=== PATIENT | female | born 1930 | race Caucasian/White ===

== ENCOUNTER 2018-09-25 13:31 | Emergency (ER) | payer MEDICARE ==
[~2018-09-25] VITALS: Ht 160 cm; Wt 53.5 kg
[2018-09-25 13:39] VITALS: Ht 160 cm; Wt 53.5 kg
[2018-09-25 14:57] LABS: BASOPHIL % 0.6 % (0-2); PLATELET COUNT 429 x10^3mcL (130-400); RED CELL DISTRIBUTION WIDTH 16.1 % (11.5-14.5)
[2018-09-25 14:58] LABS: CALCIUM 8.5 mg/dL (8.5-10.1); CARBON DIOXIDE 26.7 mmol/L (21-32); CHLORIDE SERUM 103 mmol/L (98-107); CREATININE SERUM 1.2 mg/dL (0.6-1.0); GLUCOSE SERUM 96 mg/dL (74-106); POTASSIUM SERUM 4.4 mmol/L (3.5-5.1); SODIUM SERUM 139 mmol/L (136-145)
[2018-09-25 15:02] LABS: ALBUMIN 3.5 g/dL (3.4-5.0); ALKALINE PHOSPHATASE 100 U/L (46-116); ALT/SGPT 17 U/L (14-59); AST/SGOT 12 U/L (15-37); BILIRUBIN TOTAL 0.6 mg/dL (0.20-1.00); TOTAL PROTEIN, SERUM 7.1 g/dL (6.4-8.2)
[2018-09-25 16:35] VITALS: BP 110/57
== END 2018-09-25 16:35 | disposition home or self-care (01) ==
LOC: ED 13:31
PROVIDERS: Emergency Medicine
DX: R06.03 Acute respiratory distress (principal); J44.1 Chronic obstructive pulmonary disease with (acute) exacerbation; E78.5 Hyperlipidemia, unspecified; N18.9 Chronic kidney disease, unspecified; Z98.890 Other specified postprocedural states; Z88.2 Allergy status to sulfonamides; Z88.5 Allergy status to narcotic agent; Z88.1 Allergy status to other antibiotic agents; Z88.8 Allergy status to other drugs, medicaments and biological substances
CPT/HCPCS: 36415; 83880; J7512; J7620; Q0092

== ENCOUNTER 2019-06-17 10:55 | Inpatient (IN) | payer MEDICARE ==
[~2019-06-17] VITALS: Ht 160 cm; Wt 49.7 kg
[2019-06-17 11:02] VITALS: Ht 160 cm; Wt 49.7 kg
--- NOTE | 2019-06-17 11:02 | NUR ---
PT BIBA C/O SOB AND "CYST" TO MID RIGHT CHEST. PT ARRIVED ON CPAP AND RT MARY KAY AT BEDSIDE TO TRANSFER PT ONTO BIPAP. PT TRANSFERRED BY MEDICS AND ED STAFF ONTO [facility] AND PLACED ON FULL CM. PER MEDICS PT HAS HX OF DEMENTIA, "HER MENTATION IS BASELINE PER THE NURSES AT [facility]", PT IS AAO TO SELF, REORIENTED TO DATE AND LOCATION, PT REPEATEDLY ASKS STAFF TO REMOVE BIPAP MASK, PT INFORMED BIPAP IS NECESSARY, PT VERBALIZED UNDERSTANDING. PT NOTED TO HAVE LABORED BREATHING WITH FRANCISCO SUPRACLAVICULAR RETRACTIONS NOTED, WHEEZING TO ALL ZAMUDIO NOTED UPON AUSCULTATION. PER MEDICS PT SKIN WAS PALE UPON ARRIVAL, STS "AFTER WE PUT HER ON THE CPAP SHE BECAME MORE PINK". AWAITING MSE.
--- NOTE | 2019-06-17 11:07 | NUR ---
DR SALES MADE AWARE OF PT'S CHEST WOUND, STS NO WOUND CULTURES NEEDED.
--- NOTE | 2019-06-17 11:07 | NUR ---
DR SALES AT BEDSIDE FOR MSE.
--- NOTE | 2019-06-17 11:08 | NUR ---
DR SALES AT BEDSIDE FOR MSE.
--- NOTE | 2019-06-17 11:27 | NUR ---
EKG IN PROGRESS.
--- NOTE | 2019-06-17 11:29 | NUR ---
PER ODALIS HUNTER, SPOKE WITH "THE NURSE THAT NORMALLY TAKES CARE OF THE PT, SHE SAID THE LAST BREATHING TX SHE GOT WAS LAST NIGHT, BUT IT DIDN'T ACTUALLY HAVE MEDICATION IN IT. SHE ALSO SAID THE LAST SHOWER PT HAD, WHEN THEY DO THEIR SKIN CHECKS, WAS ON 06/13/19 AND THEY DIDN'T SEE THE CYST ON HER CHEST".
[2019-06-17 11:37] LABS: CALCIUM 8.5 mg/dL (8.5-10.1); CARBON DIOXIDE 27.9 mmol/L (21-32); CHLORIDE SERUM 104 mmol/L (98-107); CREATININE SERUM 0.8 mg/dL (0.6-1.0); GLUCOSE SERUM 100 mg/dL (74-106); POTASSIUM SERUM 4.3 mmol/L (3.5-5.1); SODIUM SERUM 141 mmol/L (136-145)
--- NOTE | 2019-06-17 11:39 | NUR ---
PT'S SON AT BEDSIDE.
[2019-06-17 11:48] LABS: ALBUMIN 3.1 g/dL (3.4-5.0); ALKALINE PHOSPHATASE 138 U/L (46-116); ALT/SGPT 20 U/L (14-59); AST/SGOT 13 U/L (15-37); BILIRUBIN TOTAL 0.62 mg/dL (0.20-1.00); C REACTIVE PROTEIN 5.1 mg/dL (<=0.9)
[2019-06-17 11:51] LABS: CK-MB 1.8 ng/mL (0-3.6)
[2019-06-17 12:03] LABS: T3 TOTAL 0.72 ng/mL
--- NOTE | 2019-06-17 12:04 | NUR ---
URINE DIP RESULTS REPORTED TO DR SALES.
[2019-06-17 12:06] LABS: UA SPECIFIC GRAVITY 1.025 (1.005-1.035); microscopic required? YES; urine erythrocyte 3+ (NEGATIVE)
[2019-06-17 12:12] LABS: BASOPHIL % 0.4 % (0-2)
[2019-06-17 12:13] LABS: PLATELET COUNT 403 x10^3mcL (130-400); RED CELL DISTRIBUTION WIDTH 16.3 % (11.5-14.5)
[2019-06-17 12:21] LABS: FREE T4 0.94 ng/dL (0.76-1.46); T4(THYROXINE) 5.8 ug/dL (4.7-13.3)
--- NOTE | 2019-06-17 12:37 | NUR ---
PT MEDICATED PER EMAR.
--- NOTE | 2019-06-17 12:38 | NUR ---
PT STS HER BIPAP MASK "IS BOTHERING ME" X3 ATTEMPTS MADE BY ME TO ADJUST PT'S BIPAP MASK, RT MARY KAY AT BEDSIDE FOR ASSISTANCE. PT'S SON AT BEDSIDE. PT ON FULL CM, VSS, PT BREATHING IS BECOMING MORE REGULAR, CONTINUES TO WHEEZE IN ALL ZAMUDIO UPON AUSCULTATION, CALL LIGHT WITHIN REACH. PT IN POSITION OF COMFORT.
[2019-06-17] MEDS ORDERED: DULERA1 AR2 INH (13:12)
[2019-06-17] MEDS ORDERED: ZESTRIL5 MG PO (13:14)
[2019-06-17] MEDS ORDERED: PROAIR HFA8.5 GM IH (13:14)
[2019-06-17] MEDS ORDERED: ARICEPT5 MG PO (13:14)
[2019-06-17] MEDS ORDERED: LIPITOR40 MG PO (13:14)
[2019-06-17] MEDS ORDERED: ASPIR LOW81 MG PO (13:15)
--- NOTE | 2019-06-17 13:24 | NUR ---
REPORT GIVEN TO SUE BEAL TO ASSUME CARE OF PT.
--- NOTE | 2019-06-17 13:48 | NUR ---
PT TRANSPORTED TO TELE AT THIS TIME. PT IS AWAKE AND ALERT, REMAINS ON BIPAP. PT TRANSPORTED BY RN MARCELLA, EMT SIRISHA, AND RT MARY KAY. NAD NOTED UPON LEAVING ED.
[2019-06-17 13:52] LABS: MAGNESIUM 2.2 mg/dL (1.8-2.4)
[2019-06-17 13:53] LABS: CHOLESTEROL/HDL RATIO 2.5
[2019-06-17 13:55] LABS: ERYTHROCYTE SED RATE 68 mm/hr (0-30)
--- NOTE | 2019-06-17 14:01 | NUR ---
RECEIVED PT FROM ED VIA [facility] [employer], CAME IN DUE TO SOB AND WOUND ON THE CHEST THAT WAS NOTICE BY THE PATIENT'S SON TODAY. PT IS AAOX2 (PERSON, PLACE AND BIRTHDATE), FORGETFUL. ABLE TO FOLLOW COMMANDS. SPEECH IS CLEAR. SOB NOTED ON EXERTION. EXPIRATORY WHEEZES NOTED ON AUSCULTATION. O2 SAT= 100% ON 4LPM/NC. SHALLOW BREATHING NOTED. RR=24. DENIES CHEST PAIN/PRESSURE, SR ON THE MONITOR, HR AT-72. DENIES ABDOMINAL DISCOMFORT. ABDOMEN IS SOFT. W/ TURKMEN 16 MENDEZ CATHETER DRAINING W/ MILD CLOUDY URINE. W/ ECCHYMOSIS ON BUE AND BLE, BLANCHABLE ERYTHEMA ON THE BUTTOCKS (COVERED W/ OPTIFOAM FOR PROTECTION), AND CLOSED WOUND ON THE MID-CHEST (NOTED SCANT AMOUT OF CLEAR DRAINAGE W/ MILD FOUL ODOR). IV SITE PATENT AND INTACT. SIDE RAILS UPX2. CALL LIGHT ON REACH. HOB ELEVATED AT 30 DEG. PT'S SON AT BEDSIDE. PRIMARY NURSE MISA AT BEDSIDE FOR CONTINUITY OF CARE
[2019-06-17 14:22] VITALS: BP 135/55
[2019-06-17 14:47] VITALS: BP 135/55
--- NOTE | 2019-06-17 15:09 | NUR ---
DR VIERAED IN TO ASSESS PATIENT. MADE AWARE OF CHEST CELLULITIS. PHARMACIST NICOLETTE DIALED ABOUT PATIENT ALLERGIES AND NEED TO VERIFY REACTION. PATIENT DENIES OR IS UNAWARE OF MEDICATION ALLERGIES. DIALED SON SOBIA AND ALSO NOT AWARE OF SEVERITY. CALLED [facility] AND LEFT . INFORMED DR LEONARDO AND MADE AWARE.
--- NOTE | 2019-06-17 17:22 | NUR ---
WOUND CULTURE CHEST OBTAINED PER MD AND SENT TO LAB. REORIENT PATIENT TO SITUATION PATIENT CONTINUES TO ASK STAFF ABOUT BATHROOM PRIVILEGES. EXPLAINED TO PATIENT SHE HAS MENDEZ CATHTER INSERTED. SON SOBIA RETURNED TO BEDSIDE, AND EXPLAINED TO SON PLAN OF CARE PER DR LEONARDO. SON VERBALIZES UNDERSTANDING. SITTER CURRENTLY AT BEDSIDE, AND SON RETURNED HOME. WILL CONTINUE TO MONITOR.
[2019-06-17 17:28] VITALS: BP 124/50
--- NOTE | 2019-06-17 19:35 | NUR ---
RECEIVED PT FROM AM NURSE. PT AWAKE LAYING DOWN IN BED WITH STAFF AT [facility]. PT AAOX2, CONFUSED. ABLE TO FOLLOW SIMPLE COMMANDS AND MAKE NEEDS KNOWN. TELE#17 [address] SR. DENIES CP/PRESSURE AT THIS TIME. PALPABLE PULSES TO ALL EXREMETIES. NO EDEMA NOTED. EXP WHEEZE TO AUSCULTION. BREATHING EVEN AND UNLABORED ON 4L NC. NO ACUTE RESP DISTRESS NOTED. C/O SOB ON EXERTION. ABD SOFT AND NONDISTENDED. ACTIVE BS X4 QUAD. DENIES N/V/D. MENDEZ CATH IN PLACE, DRAINING DARK YELLOW URINE. GENERALIZED WEAKNESS. BEDFAST AT THIS TIME. ERYTHEMA TO BLE AND BUE, AND COCCYX. OPTIFOAM TO COCCYX APPLIED. IV TO LAC AND RFA PATENT AND INTACT. SITES WNL. BED AT LOWEST SETTING. SIDE RAILS X2 UP. CALL LIGHT WITHING REACH. WILL CONT TO MONITOR.
--- NOTE | 2019-06-18 00:05 | NUR ---
PT AWAKE LAYING DOWN IN BED, BREATHING EVEN AND UNLABORED ON 4L NC. NO ACUTE RESP DISTRESS NOTED. BED AT LOWEST SETTING. SIDE RAILS X2 UP. CALL LIGHT WITHING REACH. STAFF AT BEDSIDE FOR SAFETY. WILL CONT TO MONITOR.
--- NOTE | 2019-06-18 05:12 | NUR ---
PT SLEPT AT INTERVALS THROUGHOUT THE NIGHT, BREATHING EVEN AND UNLABORED ON 4L NC WITH EXP WHEEZING TO AUSCULTATION. NO SIGNIFICANT CHANGES DURING SHIFT. MENDEZ CATH CARE RENDERED. EMPTIED 600CC OF DARK URINE FROM MENDEZ. NO C/O PAIN. ALL NEEDS ASSESSED AND ATTENED TO. IV TO RFA AND LAC PATENT AND INTACT. SITES WNL. RYAN CUTE DISTRESS NOTED. BED AT LOWEST SETTING. SIDE RAILS X2 UP. STAFF AT BEDISDE. WILL CONT TO MONITOR AND ENDORSE CARE TO AM NURSE.
[2019-06-18 05:26] VITALS: BP 136/52
--- NOTE | 2019-06-18 06:48 | NUR ---
BLADDER TRAINING STARTED AT THIS TIME PER ORDER. MENDEZ CATH CLAMPLED AT THIS TIME. EDUCATED PT ABOUT BLADDER TRAINING, ENCOURAGE PT TO LET NURSE KNOWN WHEN FEELING URGE TO URINATE. PT STATES UNDERSTANDING. NO ACUTE DISTRESS NOTED. WILL ENDORSE CARE TO AM NURSE.
[2019-06-18 07:14] LABS: PLATELET COUNT 373 x10^3mcL (130-400)
[2019-06-18 07:21] LABS: CALCIUM 8.6 mg/dL (8.5-10.1); CARBON DIOXIDE 25.5 mmol/L (21-32); CHLORIDE SERUM 105 mmol/L (98-107); GLUCOSE SERUM 156 mg/dL (74-106); MAGNESIUM 2.1 mg/dL (1.8-2.4); POTASSIUM SERUM 4.6 mmol/L (3.5-5.1); SODIUM SERUM 141 mmol/L (136-145)
--- NOTE | 2019-06-18 07:38 | NUR ---
RECEIVED PATIENT FROM SUE KIM. PATIENT IN BED WITH NO COMPLAINTS AT THIS TIME. PATIENT HAS TO BE REORIENTED FOR MENDEZ CATHETER USAGE, PATIENT VERBALIZES UNDERSTANDING THEN IMMEDIATELY FORGETS ABOUT FC, FC ALSO CLAMPED AT THIS TIME. SITTER AT BEDSIDE, WILL WAIT FOR RESIDENTS TO ARRIVE AND SPEAK WITH PATIENT. CALL LIGHT IN REACH.
[2019-06-18 07:52] LABS: BASOPHIL % 0 % (0-2); RED CELL DISTRIBUTION WIDTH 16.4 % (11.5-14.5)
[2019-06-18 08:21] VITALS: BP 139/49
--- NOTE | 2019-06-18 09:31 | NUR ---
MENDEZ CATHETER REMOVED AND PATIENT TOLERATED. SON SOBIA HAS ARRIVED. STILL WAITING FOR MEDICAL TEAM TO COME SEE PATIENT ABOUT FURTHER PLANS. SITTER AT BEDSIDE, BED BATH INITIATIED BY FOREIGN TOTH.
--- NOTE | 2019-06-18 11:53 | NUR ---
SPOKE WITH CM AT [facility] VIA PHONE [phone] . STATES THAT THEY ARE WORKING FOR A BED TO OPEN UP AT [facility]. WILL INFORM PATIENT SON VIA TELEPHONE. PATIENT IN BED, READING NEWSPAPER, NO COMPLAINTS AT THIS TIME AND DENIES SOB. CALL LIGHT IN REACH, SITTER AT BEDSIDE.
[2019-06-18 12:27] VITALS: BP 124/45
--- NOTE | 2019-06-18 13:11 | NUR ---
SPOKE WITH YURI FROM [facility] ABOUT PLACEMENT TO [facility] ROOM 3107B. NOTIFIED CHARGE NURSE NICOLETTE, DR LEONARDO, AND CHIEF JUVENILE [employer]ATION OFFICER RAFAL. REPORT GIVEN TO SUE VALIENTE AT [facility]. PATIENT SON CAROL ALSO AT BEDSIDE AND INFORMED. PATIENT SON HAS CONCERNS ABOUT DISTANCE OF [facility] AND CURRENTLY SPEAKING WITH [facility] [employer] [facility]IANA AND ALL QUESTIONS ADDRESSED AT THIS TIME. TRANSFER PACKET COMPILED AND SIGNATURES OBTAINED, YURI STATED THAT [facility] WOULD BE AT 1400.
--- NOTE | 2019-06-18 14:16 | NUR ---
[facility] STAFF ARRIVED TO FLOOR. TELEMETRY RETURNED TO SUE ROBLES. IV CATHETERS REMAIN. TRASNFER PACKET AND REPORT GIVEN TO [facility] STAFF. PATIENT WITH BELONGINGS TO DOWNSTAIRS [facility]. NO COMPLAINTS OF PAIN OR SIGNS OF SOB AT THIS TIME. SIGNATURES OBTAINED.
== END 2019-06-18 14:25 | disposition short-term general hospital (02) | DRG 189 ==
LOC: ED 10:55 → DU 12:58
PROVIDERS: Specialist; ADMIT Family Medicine
DX: J96.21 Acute and chronic respiratory failure with hypoxia (principal); J44.1 Chronic obstructive pulmonary disease with (acute) exacerbation; L03.313 Cellulitis of chest wall; E78.5 Hyperlipidemia, unspecified; I11.9 Hypertensive heart disease without heart failure; I25.10 Atherosclerotic heart disease of native coronary artery without angina pectoris; F03.90 Unspecified dementia, unspecified severity, without behavioral disturbance, psychotic disturbance, mood disturbance, and anxiety; Z87.891 Personal history of nicotine dependence; Z79.82 Long term (current) use of aspirin; Z68.22 Body mass index [BMI] 22.0-22.9, adult
CPT/HCPCS: 36600; 83880; 84439; 87804; 94150; G0378; J0696; J2543; J2920; J2930; J7030; J7060; J7613; J7620; J7626; J7644